=== PATIENT | male | born 1980 | race Two or more races ===

== ENCOUNTER → 2017-07-06 | Outpatient (CLI) | payer OTHER ==
[~2017-07-06] MED LIST: ALBU90OI INH; CEPH500 PO; CYCL10 PO; FLUSAL5005 INH; GUAI120S1 PO; HYDACE5 PO; HYDACE5325 PO; HYDR1TAB94 PO; HYDROXY CUT; IBUP600 PO; IBUP800 PO; LITH300C PO; META800 PO; METPRE4DP PO; NAPR220 PO; NAPR500 PO; NYSTRI30T TOP; OXYACE5T PO; Percocet 10-321 EACH PO; Prednisone20 MG PO; SULTRIDS PO; Ultram50 MG PO; Valium5 MG PO; Ventolin Soln3 ML INH; Zithromax250 MG PO; Zovirax200 MG PO; [UNRECOGNIZED DRUG - REMARK]
[2017-07-08 03:22] LABS: MDA Not Detected (NOTDET); MDEA Not Detected (NOTDET); MDMA Not Detected (NOTDET)
== END ==
LOC: LAB EV 09:26
PROVIDERS: Student in an Organized Health Care Education/Training Program
DX: G89.4 Chronic pain syndrome (principal)
CPT/HCPCS: G0480